=== PATIENT | female | born 1945 | race Caucasian/White ===

== ENCOUNTER 2016-12-24 11:29 | Inpatient (IN) | payer MEDICARE, OTHER ==
[2016-12-24 12:37] LABS: HEMOGLOBIN 10.6 gm/dl (12.3-15.3); RED BLOOD COUNT 3.99 M/UL (4.00-5.10); WHITE BLOOD COUNT 10.9 K/UL (4.5-11.0)
[2016-12-25] MEDS ORDERED: FOLIC ACID 1 MG1 MG PO (01:59)
[2016-12-25] MEDS ORDERED: LOSARTAN POTAS100 MG PO (01:59)
[2016-12-25] MEDS ORDERED: LOPRESSOR 25 MG25 MG PO (01:59)
[2016-12-25] MEDS ORDERED: GLUCOTROL XL10 MG PO (01:59)
[2016-12-25] MEDS ORDERED: NEURONTIN 300300 MG PO (02:01)
[2016-12-25] MEDS ORDERED: ISOSORBIDE MONO60 MG PO (02:01)
[2016-12-25] MEDS ORDERED: ULTRAM50 MG PO (02:02)
[2016-12-25] MEDS ORDERED: NORVASC 5 MG TAB5 MG PO (02:03)
[2016-12-25] MEDS ORDERED: COLACE 100MG C100 MG PO (02:03)
[2016-12-25] MEDS ORDERED: CRESTOR20 MG PO (02:03)
[2016-12-25 04:44] LABS: HEMOGLOBIN 11.4 gm/dl (12.3-15.3); RED BLOOD COUNT 4.22 M/UL (4.00-5.10); WHITE BLOOD COUNT 11.4 K/UL (4.5-11.0)
[2016-12-26] MEDS ORDERED: LEVAQUIN250 MG PO (17:22)
[2016-12-26] MEDS ORDERED: VENTOLIN HFA 66.7 GM INH (17:23)
[2016-12-26] MEDS ORDERED: SYMBICORT 80-41 INHA INH (17:24)
[2016-12-26] MEDS ORDERED: PREDNISONE20 MG PO (17:58)
== END 2016-12-26 18:30 | disposition home or self-care (01) | DRG 189 ==
LOC: ER1 11:29 → ZEROF 16:58 → M/S 16:58
PROVIDERS: Emergency Medicine; Internal Medicine; Legal Medicine; ADMIT Family Medicine
PROC: 5A09357 Assistance with Respiratory Ventilation, Less than 24 Consecutive Hours, Continuous Positive Airway Pressure (ICD-10-PCS; principal; 2016-12-26)
DX: J96.02 Acute respiratory failure with hypercapnia (principal); J44.1 Chronic obstructive pulmonary disease with (acute) exacerbation; I13.0 Hypertensive heart and chronic kidney disease with heart failure and stage 1 through stage 4 chronic kidney disease, or unspecified chronic kidney disease; I50.32 Chronic diastolic (congestive) heart failure; E11.9 Type 2 diabetes mellitus without complications; E78.5 Hyperlipidemia, unspecified; E66.9 Obesity, unspecified; I25.10 Atherosclerotic heart disease of native coronary artery without angina pectoris; J45.909 Unspecified asthma, uncomplicated; M06.9 Rheumatoid arthritis, unspecified; N18.9 Chronic kidney disease, unspecified; I27.2 Other secondary pulmonary hypertension; D50.9 Iron deficiency anemia, unspecified; G47.33 Obstructive sleep apnea (adult) (pediatric); Z95.5 Presence of coronary angioplasty implant and graft; Z86.718 Personal history of other venous thrombosis and embolism; Z88.8 Allergy status to other drugs, medicaments and biological substances; Z79.84 Long term (current) use of oral hypoglycemic drugs; Z79.82 Long term (current) use of aspirin; Z79.899 Other long term (current) drug therapy; Z87.891 Personal history of nicotine dependence; Z82.49 Family history of ischemic heart disease and other diseases of the circulatory system; Z68.38 Body mass index [BMI] 38.0-38.9, adult
CPT/HCPCS: 36415; 36600; 71010; 80048; 80053; 81001; 82550; 82553; 82607; 82728; 82746; 82803; 82962; 83036; 83540; 83874; 83880; 84484; 85025; 85027; 85610; 85730; 87086; 93005; 94640; 94660; 94664; 96374; 96376; 99285; J1644; J1940; J2920; J2930

== ENCOUNTER 2021-03-16 17:23 | Inpatient (IN) | payer MEDICARE, OTHER ==
[~2021-03-16] VITALS: Ht 165.1 cm; Wt 88.5 kg
[~2021-03-16 17:23] MED LIST: ALBUTEROL1.25 MG/3 INH; AUGMENTIN 875-1 EACH PO; BENTYL 20MG TAB20 MG PO; CEFUROXIME500 MG PO; CIPRO250 MG PO; CIPRO500 MG PO; COLACE 100MG C100 MG PO; CURCUMIN250 GM MC; DIABETA 5 MG TAB5 MG PO; ECOTRIN81 MG PO; ENULOSE10 GM/15 M PO; FEOSOL325 MG PO; FIBER PILL; FLAGYL500 MG PO; FOLIC ACID 1 MG1 MG PO; GLUCOTROL XL10 MG PO; HUMIRA40 MG/0.8 SQ; HYDRALAZINE HCL50 MG PO; IBU800 MG PO; ISOSORBIDE MONO60 MG PO; KEFLEX CAP 250250 MG PO; LEVAQUIN250 MG PO; LOSARTAN POTAS100 MG PO; METAMUCIL0.52 GM PO; METHOTREXA25 MG/1 M6 IM; NATURAL LAXATIV25 MG PO; NEURONTIN 300300 MG PO; NITROSTAT0.4 MG SL; NORVASC 5 MG TAB5 MG PO; PREDNISONE20 MG PO; PROTONIX40 MG PO; STIOLTO INH; STOOL SOFTENER100 MG PO; SYMBICORT 80-41 INHA INH; ULORIC 40 MG TA40 MG PO; ULTRAM50 MG PO; VALIUM 5 MG TAB5 MG PO; VENTOLIN HFA 66.7 GM INH; VITAMIN D 11000 UNIT PO; ZANTAC150 MG PO; ZOFRAN ODT 4 MG4 MG PO; ZOFRAN4 MG PO; ZYRTEC10 M3 PO
[2021-03-16 19:18] LABS: HEMOGLOBIN 8.8 gm/dl (12.3-15.3); RED BLOOD COUNT 3.37 M/UL (4.00-5.10); WHITE BLOOD COUNT 7.8 K/UL (4.5-11.0)
[2021-03-16 21:10] LABS: ADENOVIRUS F 40/41 Not Detected (Negative); ASTROVIRUS Not Detected (Negative); CAMPYLOBACTER Not Detected (Negative); CLOSTRIDIUM DIFFICILE TOX A/B Not Detected (Negative); CRYPTOSPORIDIUM Not Detected (Negative); E.COLI 0157 Not Detected (Negative); ENTAMOEBA HISTOLYTICA Not Detected (Negative); ENTEROAGGREGATIVE E.COLI (EAEC Not Detected (Negative); ENTEROPATHOGENIC E.COLI (EPEC) Not Detected (Negative); ENTEROTOXIGENIC E.COLI (ETEC) Not Detected (Negative); GIARDIA LAMBLIA Not Detected (Negative); NOROVIRUS GI/GII Not Detected (Negative); PLESIOMONAS SHIGELLOIDES Not Detected (Negative); ROTOVIRUS A Not Detected (Negative); SALMONELLA Not Detected (Negative); SAPOVIRUS Not Detected (Negative); SHIG/ENTEROINVAS.ECOLI (EIEC) Not Detected (Negative); SHIGA-LIK TOX.PRO.E.COLI (STEC Not Detected (Negative); VIBRIO Not Detected (Negative); VIBRIO CHOLERAE Not Detected (Negative); YERSINIA ENTEROCOLITICA Not Detected (Negative)
[2021-03-17] MEDS ORDERED: LOPRESSOR 25 MG25 MG PO (01:59)
[2021-03-17] MEDS ORDERED: CRESTOR20 MG PO (02:03)
[2021-03-17] MEDS ORDERED: LASIX40 MG PO (03:54)
[2021-03-17 04:19] LABS: HEMOGLOBIN 7.5 gm/dl (12.3-15.3)
[2021-03-17 04:20] LABS: RED BLOOD COUNT 2.88 M/UL (4.00-5.10); WHITE BLOOD COUNT 4.6 K/UL (4.5-11.0)
[2021-03-17] MEDS ORDERED: SINEMET 25-1001 EACH PO ×2 (05:56→09:44)
[2021-03-17] MEDS ORDERED: MEGA BIOTIN10000 MCG PO (06:25)
[2021-03-17] MEDS ORDERED: PEPCID40 MG PO (09:10)
[2021-03-17] MEDS ORDERED: COZAAR 50MG TAB50 MG PO (09:10)
[2021-03-17] MEDS ORDERED: LOKELMA5 GM PO (09:12)
[2021-03-17] MEDS ORDERED: ZYLOPRIM 100 M100 MG PO (09:12)
[2021-03-17] MEDS ORDERED: LAXATIVE5 M1 PO (09:41)
[2021-03-17] MEDS ORDERED: IRON325 M1 PO (09:41)
[2021-03-17] MEDS ORDERED: MYCOSTATIN POWD15 GM TOP (09:49)
[2021-03-17] MEDS ORDERED: MIRALAX17 GM PO (10:28)
[2021-03-17] MEDS ORDERED: HYDRALAZINE HCL50 MG PO (12:08)
[2021-03-18 04:43] LABS: HEMOGLOBIN 8.4 gm/dl (12.3-15.3)
[2021-03-18 04:46] LABS: RED BLOOD COUNT 3.27 M/UL (4.00-5.10); WHITE BLOOD COUNT 6.3 K/UL (4.5-11.0)
[2021-03-19 04:29] LABS: HEMOGLOBIN 8.5 gm/dl (12.3-15.3); RED BLOOD COUNT 3.31 M/UL (4.00-5.10)
[2021-03-19 04:31] LABS: WHITE BLOOD COUNT 8.5 K/UL (4.5-11.0)
[2021-03-20 03:06] LABS: HEMOGLOBIN 8.5 gm/dl (12.3-15.3); RED BLOOD COUNT 3.28 M/UL (4.00-5.10); WHITE BLOOD COUNT 12.6 K/UL (4.5-11.0)
--- NOTE | 2021-03-20 21:45 | NUR ---
PER R.T. ABG RESULTS CALLED TO DR. ZEE. ORDER WAS RECEIVED TO CHANGE VENT SETTINGS FOLLOWS ; FI02 DECREASED TO 30% ,INCREASE RATE TO 14 .
[2021-03-21 05:03] LABS: HEMOGLOBIN 7.9 gm/dl (12.3-15.3); RED BLOOD COUNT 3.02 M/UL (4.00-5.10)
[2021-03-21 05:04] LABS: WHITE BLOOD COUNT 7.3 K/UL (4.5-11.0)
[2021-03-21 05:19] LABS: BUN/CREATININE RATIO 10 (0-10)
--- NOTE | 2021-03-21 22:35 | NUR ---
HR > 130 ON MONITOR . POSSIBLE ATRIAL FIBRILLATION NOTED. BP 86/47. PATIENT SLEEPING. 2247 , PATIENT CONVERTED BACK INTO SINUS RHYTHM WITH HR 88 . BP 107/42 . WILL CONTINUE TO MONITOR.
[2021-03-22 05:33] LABS: HEMOGLOBIN 7.5 gm/dl (12.3-15.3); RED BLOOD COUNT 2.87 M/UL (4.00-5.10); WHITE BLOOD COUNT 6.9 K/UL (4.5-11.0)
[2021-03-23 08:55] LABS: RED BLOOD COUNT 2.74 M/UL (4.00-5.10)
[2021-03-23 16:58] LABS: HEMOGLOBIN 8.5 gm/dl (12.3-15.3)
--- NOTE | 2021-03-24 04:48 | NUR ---
CONTACTED HOSPITALIST PERTAINING TO PT HR BEING TACHY IN THE 130S, EKG PERFORMED, REVIEWED BY HOSPITALIST, INFORMED HOSPITALIST OF PTS CURRENT VITALS AND THAT PRN MEDS WERE GIVEN FOR HR. NO NEW ORDERS GIVEN AT THIS TIME.
[2021-03-24 05:31] LABS: WHITE BLOOD COUNT 5.7 K/UL (4.5-11.0)
[2021-03-24 05:39] LABS: HEMOGLOBIN 9.1 gm/dl (12.3-15.3); RED BLOOD COUNT 3.39 M/UL (4.00-5.10)
[2021-03-25 05:47] LABS: HEMOGLOBIN 8.5 gm/dl (12.3-15.3); RED BLOOD COUNT 3.13 M/UL (4.00-5.10); WHITE BLOOD COUNT 5.4 K/UL (4.5-11.0)
--- NOTE | 2021-03-25 15:12 | NUR ---
PT ARRIVED TO PCU AT 1505, VSS, PT A/O X3, DAUGHTER AT BEDSIDE, SHORTY DRAIN EMPTIED, NGT NOTED-CLAMPED AT THIS TIME, RIGHT IJ TRIPLE LUMEN NOTED WITH TPN AND MAGNESIUM INFUSING, LEFT SIDED COLOSTOMY NOTED WITH SMALL AMOUNT OF YELLOW FLUID IN BAG, MID LINE ABDOMINAL INCISION INTACT WITH LALITA STILL INTACT, F/C NOTED WITH YELLOW URINE WITH OCCASSIONAL CLOUDY SEDEMENT, WILL CONTINUE TO MONITOR.
[2021-03-26 01:54] LABS: HEMOGLOBIN 8.8 gm/dl (12.3-15.3); RED BLOOD COUNT 3.29 M/UL (4.00-5.10); WHITE BLOOD COUNT 6.4 K/UL (4.5-11.0)
[2021-03-27 03:03] LABS: HEMOGLOBIN 8.7 gm/dl (12.3-15.3); RED BLOOD COUNT 3.25 M/UL (4.00-5.10)
[2021-03-28 05:12] LABS: HEMOGLOBIN 8.7 gm/dl (12.3-15.3); RED BLOOD COUNT 3.28 M/UL (4.00-5.10); WHITE BLOOD COUNT 7.9 K/UL (4.5-11.0)
[2021-03-28 08:14] LABS: TRANSFERRIN 109 mg/dL (192-364)
[2021-03-29 05:02] LABS: HEMOGLOBIN 8.6 gm/dl (12.3-15.3); RED BLOOD COUNT 3.22 M/UL (4.00-5.10)
[2021-03-29 05:05] LABS: WHITE BLOOD COUNT 10.5 K/UL (4.5-11.0)
[2021-03-30 02:51] LABS: HEMOGLOBIN 7.8 gm/dl (12.3-15.3); RED BLOOD COUNT 2.91 M/UL (4.00-5.10); WHITE BLOOD COUNT 10.5 K/UL (4.5-11.0)
[2021-03-31 02:33] LABS: HEMOGLOBIN 8.5 gm/dl (12.3-15.3)
[2021-03-31 02:46] LABS: RED BLOOD COUNT 3.22 M/UL (4.00-5.10)
[2021-04-01 02:33] LABS: HEMOGLOBIN 8.7 gm/dl (12.3-15.3); RED BLOOD COUNT 3.28 M/UL (4.00-5.10); WHITE BLOOD COUNT 10.9 K/UL (4.5-11.0)
[2021-04-02 03:41] LABS: HEMOGLOBIN 7.3 gm/dl (12.3-15.3)
[2021-04-02 03:42] LABS: RED BLOOD COUNT 2.72 M/UL (4.00-5.10)
[2021-04-04 03:17] LABS: HEMOGLOBIN 7.7 gm/dl (12.3-15.3); RED BLOOD COUNT 2.93 M/UL (4.00-5.10); WHITE BLOOD COUNT 7.8 K/UL (4.5-11.0)
[2021-04-05 03:25] LABS: HEMOGLOBIN 7.3 gm/dl (12.3-15.3); RED BLOOD COUNT 2.73 M/UL (4.00-5.10); WHITE BLOOD COUNT 7.3 K/UL (4.5-11.0)
[2021-04-06 05:04] LABS: RED BLOOD COUNT 2.57 M/UL (4.00-5.10)
[2021-04-07 07:32] LABS: HEMOGLOBIN 8.3 gm/dl (12.3-15.3); WHITE BLOOD COUNT 6.6 K/UL (4.5-11.0)
[2021-04-07 07:34] LABS: RED BLOOD COUNT 3.05 M/UL (4.00-5.10)
[2021-04-08 09:22] LABS: RED BLOOD COUNT 3.09 M/UL (4.00-5.10); WHITE BLOOD COUNT 6.4 K/UL (4.5-11.0)
[2021-04-09 04:32] LABS: HEMOGLOBIN 8.1 gm/dl (12.3-15.3); RED BLOOD COUNT 3.12 M/UL (4.00-5.10); WHITE BLOOD COUNT 6.5 K/UL (4.5-11.0)
[2021-04-10 06:01] LABS: RED BLOOD COUNT 2.99 M/UL (4.00-5.10); WHITE BLOOD COUNT 7.1 K/UL (4.5-11.0)
[2021-04-10] MEDS ORDERED: GABAPENTIN300 MG PO (08:32)
[2021-04-10] MEDS ORDERED: IPRAT-ALBUT 0.5-3 ML NEB (08:32)
[2021-04-10] MEDS ORDERED: LOPRESSOR 50 MG50 MG PO (08:32)
[2021-04-10] MEDS ORDERED: AYR (08:32)
== END 2021-04-11 09:57 | DRG 329 ==
LOC: ER1 17:23 → CDU 20:14 → CCU 20:14 → MED SURG 4 20:14 → PROG CARE 20:14 → CCU 03-17 08:37 → MED SURG 4 03-17 20:11 → PROG CARE 03-20 05:44 → CCU 03-20 10:29 → PROG CARE 03-25 15:30 → MED SURG 4 04-08 23:53
PROVIDERS: Internal Medicine; Internal Medicine Nephrology; Physician Assistant; Physician Assistant Medical; Surgery; ADMIT Internal Medicine
PROC: B24BZZ4 Ultrasonography of Heart with Aorta, Transesophageal (ICD-10-PCS; 2021-03-17)
PROC: 0D1L0Z4 Bypass Transverse Colon to Cutaneous, Open Approach (ICD-10-PCS; 2021-03-20)
PROC: 3E033XZ Introduction of Vasopressor into Peripheral Vein, Percutaneous Approach (ICD-10-PCS; 2021-03-20)
PROC: 02HV33Z Insertion of Infusion Device into Superior Vena Cava, Percutaneous Approach (ICD-10-PCS; 2021-03-20)
PROC: B548ZZA Ultrasonography of Superior Vena Cava, Guidance (ICD-10-PCS; 2021-03-20)
PROC: 0DTN0ZZ Resection of Sigmoid Colon, Open Approach (ICD-10-PCS; principal; 2021-03-20 11:46)
PROC: 3E0336Z Introduction of Nutritional Substance into Peripheral Vein, Percutaneous Approach (ICD-10-PCS; 2021-03-23)
PROC: 30233N1 Transfusion of Nonautologous Red Blood Cells into Peripheral Vein, Percutaneous Approach (ICD-10-PCS; 2021-03-23)
DX: K57.20 Diverticulitis of large intestine with perforation and abscess without bleeding (principal); A41.9 Sepsis, unspecified organism; R65.21 Severe sepsis with septic shock; N17.0 Acute kidney failure with tubular necrosis; J96.21 Acute and chronic respiratory failure with hypoxia; Z20.822 Contact with and (suspected) exposure to COVID-19; J96.22 Acute and chronic respiratory failure with hypercapnia; G93.41 Metabolic encephalopathy; J18.9 Pneumonia, unspecified organism; I46.8 Cardiac arrest due to other underlying condition; D65 Disseminated intravascular coagulation [defibrination syndrome]; E87.4 Mixed disorder of acid-base balance; I13.0 Hypertensive heart and chronic kidney disease with heart failure and stage 1 through stage 4 chronic kidney disease, or unspecified chronic kidney disease; I50.32 Chronic diastolic (congestive) heart failure; D84.9 Immunodeficiency, unspecified; N18.4 Chronic kidney disease, stage 4 (severe); K56.7 Ileus, unspecified; B37.9 Candidiasis, unspecified; D63.1 Anemia in chronic kidney disease; I27.20 Pulmonary hypertension, unspecified; E87.5 Hyperkalemia; M06.9 Rheumatoid arthritis, unspecified; E66.9 Obesity, unspecified; G47.33 Obstructive sleep apnea (adult) (pediatric); I45.10 Unspecified right bundle-branch block; I25.10 Atherosclerotic heart disease of native coronary artery without angina pectoris; E78.00 Pure hypercholesterolemia, unspecified; Z96.1 Presence of intraocular lens; E11.649 Type 2 diabetes mellitus with hypoglycemia without coma; R13.10 Dysphagia, unspecified; I48.91 Unspecified atrial fibrillation; Z96.653 Presence of artificial knee joint, bilateral; I07.1 Rheumatic tricuspid insufficiency; E78.5 Hyperlipidemia, unspecified; B37.3 Candidiasis of vulva and vagina; E87.6 Hypokalemia; I50.810 Right heart failure, unspecified; I35.8 Other nonrheumatic aortic valve disorders; E88.09 Other disorders of plasma-protein metabolism, not elsewhere classified; R53.81 Other malaise; E11.22 Type 2 diabetes mellitus with diabetic chronic kidney disease; Z79.82 Long term (current) use of aspirin; Z79.01 Long term (current) use of anticoagulants; Z79.4 Long term (current) use of insulin; Z79.899 Other long term (current) drug therapy; Z86.73 Personal history of transient ischemic attack (TIA), and cerebral infarction without residual deficits; Z88.8 Allergy status to other drugs, medicaments and biological substances; Z87.440 Personal history of urinary (tract) infections; Z87.81 Personal history of (healed) traumatic fracture; Z95.5 Presence of coronary angioplasty implant and graft; Z87.11 Personal history of peptic ulcer disease; Z87.891 Personal history of nicotine dependence; Z98.42 Cataract extraction status, left eye; Z98.41 Cataract extraction status, right eye; Z82.49 Family history of ischemic heart disease and other diseases of the circulatory system; Z91.19 Patient's noncompliance with other medical treatment and regimen
CPT/HCPCS: ECHO; 36415; 36430; 36600; 71045; 73030; 74019; 80048; 80053; 80202; 81001; 82308; 82533; 82728; 82800; 82803; 82962; 83540; 83550; 83605; 83690; 83735; 84100; 84132; 84466; 85014; 85018; 85025; 85027; 85610; 85730; 86850; 86900; 86901; 86920; 87040; 87070; 87077; 87081; 87086; 87186; 87205; 87507; 92610; 93005; 93306; 94002; 94003; 94640; 94660; 94664; 94760; 96374; 96375; 97110; 97110-GP-CQ; 97116; 97116-GP-CQ; 97162; 97166; 97530; 97530-GP-CQ; 97535; 99284; C1751; C9113; G0378; J0360; J0610; J1100; J1120; J1644; J1940; J1956; J2185; J2270; J2405; J2543; J2550; J2704; J2765; J3010; J3370; J3475; J3480; J7030; J7050; J7070; J7120; P9016; U0002